=== PATIENT | female | born 1985 | race African-American/Black ===

== ENCOUNTER 2017-10-27 17:59 | Emergency (ER) | payer SELFPAY ==
[2017-10-27] MEDS ORDERED: Ondansetron HCl/PF 4 MG/2 ML Vial ONE (18:57)
[2017-10-27 19:12] LABS: #Lymphocytes 1.4 thou/uL (1.20-3.40); #Monocytes 0.3 thou/uL (0.11-0.59); #Neutrophils 7.5 thou/uL (1.40-6.50); %Basophils 0.5 % (0.0-1.0); %Eosinophils 0.2 % (0.0-10.0); %Lymphocytes 14.7 % (21.0-51.0); Hematocrit 26.2 % (36.0-47.0); Mean Platelet Volume 6.8 fL (7.4-10.4); Red Blood Cell (RBC) Count 4.14 mill/uL (4.20-5.40); White Blood Cell (WBC) Count 9.2 thou/uL (4.8-10.8)
[2017-10-27 19:15] LABS: Bilirubin Negative (Negative); Blood, Urine Large (Negative); Glucose, Urine (Dipstick) Negative (Negative); Ketone, Urine 40 mg/dL (Negative); Nitrite Negative (Negative); Protein, Urine (Dipstick) 30 mg/dL (Neg-Trace)
[2017-10-27 19:16] LABS: Bacteria/HPF 3+ HPF (None Seen); RBC/HPF 0-3 HPF (0-3)
[2017-10-27 19:17] LABS: PTT 26.1 SEC (22.9-36.1); Prothrombin Time 15.5 SEC (12.0-14.7)
[2017-10-27 19:23] LABS: ALT (SGPT) 11 U/L (8-55); AST (SGOT) 25 U/L (5-34); Acetaminophen Less than 6.0 mcg/mL (10.0-30.0); Alkaline Phosphatase 70 U/L (40-150); Anion Gap 12 mmol/L (10-20); BUN (Urea Nitrogen) 11 mg/dL (7.0-18.7); Bilirubin, Total 0.3 mg/dL (0.2-1.2); Calc. Creatinine Clearance 0 mL/min (70-130); Calcium 9.7 mg/dL (7.8-10.44); Carbon Dioxide 22 mmol/L (22-29); Chloride 106 mmol/L (98-107); Estimated GFR-MDRD Greater than 90; Globulin 4.2 g/dL (2.4-3.5); Protein, Total 8.3 g/dL (6.0-8.3)
[2017-10-27 19:29] LABS: Squamous Epithelial 21-50 HPF (0-3)
[2017-10-27 19:30] LABS: Anisocytosis MODERATE=16-30 cells (100X) (0-5/hpf); Elliptocytes SLIGHT = 2-5 cells (100X) (0-1/hpf); Hypochromia MODERATE=16-30 cells (100X) (0-5/hpf); Microcytosis MODERATE=15-30 cells (100X) (0-5/hpf); Ovalocytes SLIGHT = 2-5 cells (100X) (0-1/hpf); Poikilocytosis SLIGHT = 6-15 cells (100X) (0-5/hpf); Polychromasia SLIGHT = 2-3 cells (100X) (0-2/hpf); Schistocytes SLIGHT = 2-5 cells (100X) (0-1/hpf); Target Cells SLIGHT = 2-5 cells (100X) (0-1/hpf); Tear Drops SLIGHT = 2-5 cells (100X) (0-1/hpf)
[2017-10-27 19:30] LABS: Hyaline Casts/LPF 0-3 HYALINE CAST LPF (0-3 Hyaline); Yeast-All Forms None Seen HPF (None Seen)
== END 2017-10-27 20:09 | disposition home or self-care (01) ==
LOC: ERS 17:59
DX: R11.2 Nausea with vomiting, unspecified (principal); K03.81 Cracked tooth; K02.9 Dental caries, unspecified; Z87.891 Personal history of nicotine dependence
CPT/HCPCS: 80053; 80307; 81003; 81015; 81025; 85025; 85610; 85730; 87086; 96361; 96374; 99406; J2405

== ENCOUNTER 2017-11-28 21:38 | Emergency (ER) | payer SELFPAY | END 2017-11-28 22:32 | disposition home or self-care (01) | LOC: ERS 21:38 | DX: J10.1 Influenza due to other identified influenza virus with other respiratory manifestations (principal); Z87.891 Personal history of nicotine dependence; D64.9 Anemia, unspecified | CPT/HCPCS: 99283 ==

== ENCOUNTER 2018-07-19 15:47 | Emergency (ER) | payer OTHER, SELFPAY ==
[2018-07-19 17:01] LABS: Bilirubin Negative (Negative); Blood, Urine Negative (Negative); Clarity TURBID (Clear); Glucose, Urine (Dipstick) Negative (Negative); Leukocyte Trace (Negative); Nitrite Negative (Negative); Protein, Urine (Dipstick) Trace mg/dL (Neg-Trace); Specific Gravity, Urine 1.024 (1.002-1.036)
[2018-07-19 17:03] LABS: Bacteria/HPF Rare-Few HPF (None Seen); Pathc Cast-AUWi Flag 1.88 (0-2.49); Squamous Epithelial 21-50 HPF (0-3); WBC/HPF 0-3 HPF (0-3)
[2018-07-19 17:15] LABS: Crystals/HPF 3+ AMORPH PHOS HPF (Negative); Hyaline Casts/LPF 0-3 HYALINE CAST LPF (0-3 Hyaline); RBC/HPF 0-3 HPF (0-3)
--- NOTE | 2018-07-19 17:25 | ULT ---
PELVIC ULTRASOUND 07/19/18 HISTORY: Abdominal cramping in patient with positive . FINDINGS: There is a fluid collection seen within the endometrial canal which contains both a pole and a yolk sac. The cardiac doppler demonstrates heart tones with a heart rate of 178 beats per minute. [place]-rump length measures 3.18 cm, consistent with gestational age by ultrasound of 10 week s with RITA on 02/14/19. Gestational age by the last menstrual period is 10 weeks and 1 day. The ovaries are not visualized bilaterally. There is a hypoechoic cystic appearing structure at the l eft aspect of the uterine fundus which is difficult to separate from the peripheral aspect of the indira greer. This may potentially represent an ovarian cyst which abuts the uterus, but this is further to ev aluate on this examination. Color flow evaluation does not demonstrate flow in this region. Again, th e left ovary is not visualized and no tissue to suggest ovarian tissue surrounds the cystic structure in the left adnexa abutting the uterus. No free fluid is seen in the cul-de-sac. IMPRESSION: 1. Single intrauterine gestation with heart tones documented. Gestational age by measureme nt of the crown-rump length is 10 weeks with RITA on 02/14/19. 2. Hypoechoic cystic structure measuring 3.9 cm x 3.5 cm x 2.1 cm seen adjacent to the left uter us in the region of the uterine fundus. This cannot be from the uterine fundus. This may re present a left ovarian cyst and possibly corpus luteal cyst, but no definite ovarian tissue is seen i n this region. Followup evaluation is suggested. POS: KEVIN
[2018-07-19 18:15] LABS: BHCG - Serum POSITIVE (NEGATIVE); Pregs Control Background? CLEAR/WHITE (CLR/WHITE); Pregs Control Bar Appear? YES (CONTROL BAR)
[2018-07-19 18:18] LABS: #Basophils 0.1 thou/uL (0.0-0.2); #Eosinphils 0.1 thou/uL (0.0-0.7); #Lymphocytes 2.2 thou/uL (1.20-3.40); #Monocytes 0.5 thou/uL (0.11-0.59); #Neutrophils 4.1 thou/uL (1.40-6.50); %Basophils 1.5 % (0.0-1.0); %Eosinophils 1.5 % (0.0-10.0); %Lymphocytes 31.4 % (21.0-51.0); %Monocytes 6.5 % (0.0-10.0); %Neutrophils 59.2 % (42.0-75.0); Hemoglobin 8.1 g/dL (12.0-16.0); Mean Corpuscular HGB CONC 31.1 g/dL (32.0-36.0); Mean Corpuscular Hemoglobin 19.4 pg (27.0-31.0); Mean Corpuscular Volume 62.4 fL (78.0-98.0); Mean Platelet Volume 5.5 fL (7.4-10.4); Platelet Count 273 thou/uL (130-400); RBC Distribution Width 19.9 % (11.5-14.5); Red Blood Cell (RBC) Count 4.15 mill/uL (4.20-5.40)
[2018-07-19 18:19] LABS: ALT (SGPT) Less than 7 U/L (8-55); AST (SGOT) 11 U/L (5-34); Alkaline Phosphatase 57 U/L (40-150); Anion Gap 12 mmol/L (10-20); BUN (Urea Nitrogen) 7 mg/dL (7.0-18.7); Bilirubin, Total 0.3 mg/dL (0.2-1.2); Calc. Creatinine Clearance 0 mL/min (70-130); Calcium 9.6 mg/dL (7.8-10.44); Carbon Dioxide 22 mmol/L (22-29); Chloride 105 mmol/L (98-107); Estimated GFR-MDRD Greater than 90; Globulin 3.8 g/dL (2.4-3.5); Glucose 83 mg/dL (70-105); Potassium 3.5 mmol/L (3.5-5.1); Protein, Total 7.8 g/dL (6.0-8.3); Sodium 135 mmol/L (136-145)
[2018-07-19 18:34] LABS: Anisocytosis MODERATE=16-30 cells (100X) (0-5/hpf); Elliptocytes SLIGHT = 2-5 cells (100X) (0-1/hpf); Hypochromia MODERATE=16-30 cells (100X) (0-5/hpf); MDiff Complete? YES; Microcytosis SLIGHT = 6-15 cells (100X) (0-5/hpf); Ovalocytes SLIGHT = 2-5 cells (100X) (0-1/hpf); PLT Morphology Comment Appears Adequate; Poikilocytosis SLIGHT = 6-15 cells (100X) (0-5/hpf); Polychromasia SLIGHT = 2-3 cells (100X) (0-2/hpf); Reflex for Review?? YES; Schistocytes SLIGHT = 2-5 cells (100X) (0-1/hpf); Target Cells SLIGHT = 2-5 cells (100X) (0-1/hpf); Tear Drops SLIGHT = 2-5 cells (100X) (0-1/hpf)
[2018-07-21 19:03] LABS: Chlamydia by PCR Not Detected (NotDetected); GC by PCR Not Detected (NotDetected)
== END 2018-07-19 18:35 | disposition home or self-care (01) ==
LOC: ERS 15:47
DX: O20.0 Threatened abortion (principal); O99.011 Anemia complicating pregnancy, first trimester; D64.9 Anemia, unspecified; Z87.891 Personal history of nicotine dependence; Z3A.10 10 weeks gestation of pregnancy
CPT/HCPCS: 36415; 76856; 80053; 81003; 81015; 84702; 84703; 85025; 85060; 86900; 86901; 87480; 87491; 87510; 87591; 87660

== ENCOUNTER 2019-10-06 13:24 | Emergency (ER) | payer OTHER, SELFPAY ==
[2019-10-06] MEDS ORDERED: Ibuprofen 200 MG TAB ONE (16:11)
[2019-10-06] MEDS ORDERED: Bicillin LA 1.2 MILLION UNITS/2 ML SYRINGE ONE (16:11)
== END 2019-10-06 16:39 | disposition home or self-care (01) ==
LOC: ERS 13:24
DX: J02.9 Acute pharyngitis, unspecified (principal)
CPT/HCPCS: 87430; 87804; 96372; 99283; J0561

== ENCOUNTER 2019-12-29 19:32 | Emergency (ER) | payer SELFPAY | END 2019-12-29 20:39 | disposition left against medical advice (07) | LOC: ERS 19:32 | DX: Z53.21 Procedure and treatment not carried out due to patient leaving prior to being seen by health care provider (principal) ==

== ENCOUNTER 2019-12-29 21:37 | Emergency (ER) | payer SELFPAY | END 2019-12-29 23:45 | disposition home or self-care (01) | LOC: ERS 21:37 | DX: J06.9 Acute upper respiratory infection, unspecified (principal); F17.210 Nicotine dependence, cigarettes, uncomplicated | CPT/HCPCS: 87804; 99283 ==

== ENCOUNTER 2020-09-07 22:22 | Emergency (ER) | payer SELFPAY ==
[2020-09-07] MEDS ORDERED: Ibuprofen 800 MG TAB ONE (23:15)
== END 2020-09-07 23:21 | disposition home or self-care (01) ==
LOC: ERS 22:22
DX: K03.81 Cracked tooth (principal); K02.9 Dental caries, unspecified; F17.210 Nicotine dependence, cigarettes, uncomplicated
CPT/HCPCS: 99282

== ENCOUNTER 2020-09-24 19:39 | Emergency (ER) | payer SELFPAY | END 2020-09-24 20:24 | disposition home or self-care (01) | LOC: ERS 19:39 | DX: K04.7 Periapical abscess without sinus (principal); K02.9 Dental caries, unspecified | CPT/HCPCS: 99282 ==

== ENCOUNTER → 2020-10-20 | Emergency (ER) | payer SELFPAY ==
[2020-10-20 19:19] LABS: Hemoglobin 9.8 g/dL (12.0-16.0); Mean Corpuscular HGB CONC 31.5 g/dL (32.0-36.0); Mean Corpuscular Hemoglobin 23.6 pg (27.0-31.0); Mean Platelet Volume 11.7 fL (7.4-10.4); Platelet Count 196 thou/uL (130-400); RBC Distribution Width 18.2 % (11.5-14.5); Red Blood Cell (RBC) Count 4.15 mill/uL (4.20-5.40); White Blood Cell (WBC) Count 5.9 thou/uL (4.8-10.8)
[2020-10-20 19:20] LABS: #Basophils 0.1 thou/uL (0.0-0.2); #Eosinphils 0.1 thou/uL (0.0-0.7); #Lymphocytes 2.7 thou/uL (1.20-3.40); #Monocytes 0.4 thou/uL (0.11-0.59); #Neutrophils 2.7 thou/uL (1.40-6.50); %Eosinophils 2.3 % (0.0-10.0); %Lymphocytes 45.1 % (21.0-51.0); %Monocytes 5.9 % (0.0-10.0); %Neutrophils 45.8 % (42.0-75.0)
[2020-10-20 19:29] LABS: BHCG - Serum Negative (NEGATIVE); Pregs Control Background? CLEAR/WHITE (CLR/WHITE); Pregs Control Bar Appear? YES (CONTROL BAR)
[2020-10-20 19:34] LABS: ALT (SGPT) Less than 7 U/L (8-55); AST (SGOT) 13 U/L (5-34); Albumin 4.1 g/dL (3.5-5.0); Alkaline Phosphatase 80 U/L (40-110); Anion Gap 14 mmol/L (10-20); BUN (Urea Nitrogen) 9 mg/dL (7.0-18.7); Bilirubin, Total 0.3 mg/dL (0.2-1.2); Calc. Creatinine Clearance 0 mL/min (70-130); Calcium 9.5 mg/dL (7.8-10.44); Carbon Dioxide 24 mmol/L (22-29); Chloride 106 mmol/L (98-107); Estimated GFR-MDRD Greater than 90; Globulin 3.7 g/dL (2.4-3.5); Glucose 82 mg/dL (70-105); Potassium 3.8 mmol/L (3.5-5.1); Protein, Total 7.8 g/dL (6.0-8.3); Sodium 140 mmol/L (136-145)
[2020-10-20 19:42] LABS: Anisocytosis SLIGHT = 6-15 cells (100X) (0-5/hpf); Auer Rods SLIGHT; Hypochromia SLIGHT = 6-15 cells (100X) (0-5/hpf); Large Platelets SLIGHT; MDiff Complete? YES; Microcytosis SLIGHT = 6-15 cells (100X) (0-5/hpf); Ovalocytes SLIGHT = 2-5 cells (100X) (0-1/hpf); Polychromasia SLIGHT = 2-3 cells (100X) (0-2/hpf); Target Cells MODERATE= 6-15 cells (100X) (0-1/hpf)
== END ==
LOC: ERS 18:26
DX: Z53.21 Procedure and treatment not carried out due to patient leaving prior to being seen by health care provider (principal)
CPT/HCPCS: 36415; 80053; 84703; 85025

== ENCOUNTER 2021-09-12 19:52 | Emergency (ER) | payer SELFPAY ==
[2021-09-12 20:14] LABS: Bilirubin Negative (Negative); Blood, Urine Negative (Negative); Clarity Extra Turbid (Clear); Glucose, Urine (Dipstick) Normal (Negative); Ketone, Urine Negative (Negative); Leukocyte Negative Leu/uL (Negative); Nitrite Negative (Negative); Protein, Urine (Dipstick) 10 mg/dL (Neg-Trace); Specific Gravity, Urine 1.027 (1.002-1.036); Urobilinogen Normal mg/dL (Less than 2)
[2021-09-12 20:15] LABS: Pregnancy Test - Urine (BHCG) Negative (Negative); Pregu Control Background? CLEAR/WHITE (CLR/WHITE); Pregu Control Bar Appear? YES (CONTROL BAR); Specific Gravity 1.027 (1.002-1.036)
== END 2021-09-12 21:35 | disposition home or self-care (01) ==
LOC: ERS 19:52
DX: R10.9 Unspecified abdominal pain (principal)
CPT/HCPCS: 81003; 81025; 99284

== ENCOUNTER 2022-06-18 05:55 | Emergency (ER) | payer SELFPAY ==
[2022-06-18 07:34] LABS: BHCG - Serum POSITIVE (NEGATIVE); Pregs Control Background? CLEAR/WHITE (CLR/WHITE); Pregs Control Bar Appear? YES (CONTROL BAR)
[2022-06-18 07:38] LABS: Hemoglobin 9.2 g/dL (12.0-16.0); Mean Corpuscular HGB CONC 31.7 g/dL (32.0-36.0); Mean Corpuscular Volume 72.6 fL (78.0-98.0); Mean Platelet Volume 9.2 fL (7.4-10.4); Platelet Count 187 thou/uL (130-400); RBC Distribution Width 18.2 % (11.5-14.5); White Blood Cell (WBC) Count 7.8 thou/uL (4.8-10.8)
[2022-06-18 07:45] LABS: ALT (SGPT) 16 U/L (8-55); AST (SGOT) 19 U/L (5-34); Albumin 3.9 g/dL (3.5-5.0); Alkaline Phosphatase 65 U/L (40-110); Anion Gap 13 mmol/L (10-20); BUN (Urea Nitrogen) 10 mg/dL (7.0-18.7); Bilirubin, Total 0.3 mg/dL (0.2-1.2); Calc. Creatinine Clearance 0 mL/min (70-130); Calcium 9.4 mg/dL (7.8-10.44); Carbon Dioxide 22 mmol/L (22-29); Chloride 105 mmol/L (98-107); Estimated GFR 120; Globulin 3.5 g/dL (2.4-3.5); Glucose 90 mg/dL (70-105); Magnesium 1.8 mg/dL (1.6-2.6); Potassium 3.6 mmol/L (3.5-5.1); Protein, Total 7.4 g/dL (6.0-8.3); Sodium 136 mmol/L (136-145)
[2022-06-18 08:09] LABS: #Basophils 0.1 thou/uL (0.0-0.2); #Eosinphils 0.2 thou/uL (0.0-0.7); #Lymphocytes 2.5 thou/uL (1.20-3.40); #Monocytes 0.6 thou/uL (0.11-0.59); #Neutrophils 4.4 thou/uL (1.40-6.50); %Basophils 1.1 % (0.0-1.0); %Eosinophils 2.7 % (0.0-10.0); %Lymphocytes 32.3 % (21.0-51.0); %Monocytes 7.1 % (0.0-10.0); %Neutrophils 56.8 % (42.0-75.0); Microcytosis SLIGHT = 6-15 cells (100X) (0-5/hpf)
[2022-06-18 08:10] LABS: MDiff Complete? YES; Platelet Morphology Comment Appears Adequate
== END 2022-06-18 08:20 | disposition home or self-care (01) ==
LOC: ERS 05:55
DX: O99.411 Diseases of the circulatory system complicating pregnancy, first trimester (principal); R00.2 Palpitations; O99.011 Anemia complicating pregnancy, first trimester; D50.9 Iron deficiency anemia, unspecified; Z3A.01 Less than 8 weeks gestation of pregnancy
CPT/HCPCS: 36415; 71045; 80053; 83735; 83880; 84443; 84484; 84703; 85025; 85379; 93005; 94760

== ENCOUNTER 2022-06-25 05:03 | Emergency (ER) | payer MEDICAID, SELFPAY ==
[2022-06-25 05:57] LABS: Bacteria/HPF 1+ HPF (None Seen); Bilirubin Negative (Negative); Blood, Urine 3+ (Negative); Clarity Turbid (Clear); Glucose, Urine (Dipstick) Normal (Negative); Ketone, Urine Negative (Negative); Leukocyte 75 Leu/uL (Negative); Nitrite Negative (Negative); Protein, Urine (Dipstick) 30 mg/dL (Neg-Trace); RBC/HPF 21-50 HPF (0-3); Urobilinogen Normal mg/dL (Less than 2); pH, Urine 5.5 (5.0-9.0)
[2022-06-25 06:06] LABS: Hemoglobin 9.4 g/dL (12.0-16.0); Mean Corpuscular HGB CONC 30.9 g/dL (32.0-36.0); Mean Corpuscular Hemoglobin 21.9 pg (27.0-31.0); Mean Platelet Volume 11.3 fL (7.4-10.4); Platelet Count 223 thou/uL (130-400); RBC Distribution Width 18.5 % (11.5-14.5); Red Blood Cell (RBC) Count 4.27 mill/uL (4.20-5.40); White Blood Cell (WBC) Count 8.5 thou/uL (4.8-10.8)
[2022-06-25 06:07] LABS: #Eosinphils 0.2 thou/uL (0.0-0.7); #Lymphocytes 3.6 thou/uL (1.20-3.40); #Monocytes 0.4 thou/uL (0.11-0.59); #Neutrophils 4.2 thou/uL (1.40-6.50); %Basophils 0.5 % (0.0-1.0); %Eosinophils 2.4 % (0.0-10.0); %Monocytes 4.7 % (0.0-10.0); %Neutrophils 49.4 % (42.0-75.0)
== END 2022-06-25 07:30 | disposition home or self-care (01) ==
LOC: ERS 05:03
DX: O20.0 Threatened abortion (principal); O99.891 Other specified diseases and conditions complicating pregnancy; R82.71 Bacteriuria; Z3A.08 8 weeks gestation of pregnancy
CPT/HCPCS: 36415; 76856; 81003; 81015; 84702; 85025; 86900; 86901; 93976

== ENCOUNTER 2022-07-25 17:13 | Emergency (ER) | payer MEDICAID, OTHER ==
[2022-07-25 17:57] LABS: #Basophils 0.1 thou/uL (0.0-0.2); #Eosinphils 0.2 thou/uL (0.0-0.7); #Lymphocytes 2.3 thou/uL (1.20-3.40); #Monocytes 0.6 thou/uL (0.11-0.59); #Neutrophils 4.2 thou/uL (1.40-6.50); %Basophils 0.8 % (0.0-1.0); %Eosinophils 3.1 % (0.0-10.0); %Lymphocytes 30.5 % (21.0-51.0); %Monocytes 8.5 % (0.0-10.0); %Neutrophils 57.1 % (42.0-75.0); Hemoglobin 9.1 g/dL (12.0-16.0); Mean Corpuscular HGB CONC 32.3 g/dL (32.0-36.0); Mean Corpuscular Hemoglobin 22.6 pg (27.0-31.0); Mean Corpuscular Volume 69.9 fL (78.0-98.0); Mean Platelet Volume 10.7 fL (7.4-10.4); Platelet Count 197 thou/uL (130-400); RBC Distribution Width 18.6 % (11.5-14.5); Red Blood Cell (RBC) Count 4.04 mill/uL (4.20-5.40); White Blood Cell (WBC) Count 7.4 thou/uL (4.8-10.8)
[2022-07-25 18:07] LABS: Bacteria/HPF 2+ HPF (None Seen); Bilirubin Negative (Negative); Blood, Urine 2+ (Negative); Calcium Oxalate Crystals 1+ HPF (None Seen); Clarity Turbid (Clear); Glucose, Urine (Dipstick) Normal (Negative); Ketone, Urine Negative (Negative); Leukocyte 500 Leu/uL (Negative); Nitrite Negative (Negative); Protein, Urine (Dipstick) 70 mg/dL (Neg-Trace); RBC/HPF Greater than 50 HPF (0-3); Specific Gravity, Urine 1.024 (1.002-1.036); Urobilinogen Normal mg/dL (Less than 2); WBC/HPF Greater than 50 HPF (0-3); pH, Urine 6.5 (5.0-9.0)
[2022-07-25 18:14] LABS: ALT (SGPT) 10 U/L (8-55); AST (SGOT) 12 U/L (5-34); Albumin 3.8 g/dL (3.5-5.0); Alkaline Phosphatase 62 U/L (40-110); Anion Gap 13 mmol/L (10-20); BUN (Urea Nitrogen) 6 mg/dL (7.0-18.7); Bilirubin, Total 0.2 mg/dL (0.2-1.2); Calc. Creatinine Clearance 0 mL/min (70-130); Calcium 9.6 mg/dL (7.8-10.44); Carbon Dioxide 22 mmol/L (22-29); Chloride 104 mmol/L (98-107); Estimated GFR 117; Globulin 3.7 g/dL (2.4-3.5); Glucose 83 mg/dL (70-105); Potassium 3.6 mmol/L (3.5-5.1); Protein, Total 7.5 g/dL (6.0-8.3); Sodium 135 mmol/L (136-145)
== END 2022-07-25 19:14 | disposition home or self-care (01) ==
LOC: ERS 17:13
DX: N39.0 Urinary tract infection, site not specified (principal)
CPT/HCPCS: 36415; 80053; 81003; 81015; 85025; 87077; 87086; 87186; 99283

== ENCOUNTER 2022-08-24 20:34 | Emergency (ER) | payer OTHER ==
[2022-08-24 21:05] LABS: Bacteria/HPF 2+ HPF (None Seen); Bilirubin Negative (Negative); Blood, Urine Negative (Negative); Clarity Clear (Clear); Glucose, Urine (Dipstick) Normal (Negative); Ketone, Urine Negative (Negative); Leukocyte 75 Leu/uL (Negative); Mucous/LPF Rare LPF (<2+); Nitrite Negative (Negative); Protein, Urine (Dipstick) 10 mg/dL (Neg-Trace); RBC/HPF 0-3 HPF (0-3); Specific Gravity, Urine 1.028 (1.002-1.036); Urobilinogen Normal mg/dL (Less than 2)
[2022-08-25 00:29] LABS: Pregnancy Test - Urine (BHCG) POSITIVE (Negative); Pregu Control Background? CLEAR/WHITE (CLR/WHITE); Pregu Control Bar Appear? YES (CONTROL BAR)
[2022-08-25 00:30] LABS: Specific Gravity 1.028 (1.002-1.036)
[2022-08-25] MEDS ORDERED: Azithromycin 250 MG TAB ONE (00:51)
[2022-08-25] MEDS ORDERED: cefTRIAXone\\ROCEPHIN 1 GM VIAL ONE (00:51)
[2022-08-25] MEDS ORDERED: Sterile Water 10 ML ONE (00:52)
[2022-08-25] MEDS ORDERED: Fluconazole 100 MG TAB PO SCH (01:15)
[2022-08-25 13:45] LABS: Chlamydia by PCR *Indeterminate (NotDetected); GC by PCR *Indeterminate (NotDetected)
== END 2022-08-25 01:44 | disposition home or self-care (01) ==
LOC: ERS 20:34
DX: O23.592 Infection of other part of genital tract in pregnancy, second trimester (principal); Z3A.16 16 weeks gestation of pregnancy
CPT/HCPCS: 81003; 81015; 81025; 87480; 87491; 87510; 87591; 87660; 96372; 99283; J0696

== ENCOUNTER 2024-05-20 16:45 | Emergency (ER) | payer SELFPAY ==
[2024-05-20 17:33] LABS: #Basophils 0.06 10x3/uL (0.0-0.2); %Basophils 1.5 % (0.0-1.0); %Eosinophils 2.2 % (0.0-10.0); %Lymphocytes 47.7 % (21.0-51.0); %Monocytes 6.8 % (0.0-10.0); %Neutrophils 41.6 % (42.0-75.0); Hematocrit 26.3 % (36.0-47.0); Hemoglobin 7.4 g/dL (12.0-16.0); Mean Corpuscular HGB CONC 28.1 g/dL (32.0-36.0); Mean Corpuscular Volume 63.8 fL (78.0-98.0); Platelet Count 203 10x3/uL (130-400); Red Blood Cell (RBC) Count 4.12 mill/uL (4.20-5.40)
[2024-05-20 17:52] LABS: ALT (SGPT) 7 U/L (8-55); AST (SGOT) 14 U/L (5-34); Albumin 3.7 g/dL (3.5-5.0); Alkaline Phosphatase 85 U/L (40-110); Anion Gap 12 mmol/L (10-20); BUN (Urea Nitrogen) 8 mg/dL (7.0-18.7); Bilirubin, Total 0.3 mg/dL (0.2-1.2); Calc. Creatinine Clearance 0 mL/min (70-130); Calcium 9.4 mg/dL (7.8-10.44); Carbon Dioxide 22 mmol/L (22-29); Chloride 109 mmol/L (98-107); Estimated GFR 107; Glucose 86 mg/dL (70-105); Protein, Total 7.7 g/dL (6.0-8.3); Sodium 139 mmol/L (136-145)
[2024-05-20 18:02] LABS: Elliptocytes SLIGHT = 2-5 cells HPF (0-1); Hypochromia MODERATE=16-30 cells HPF (0-5); Microcytosis MARKED = >30 cells HPF (0-5); Ovalocytes SLIGHT = 2-5 cells HPF (0-1); Platelet Adequacy Comment Platelets Normal; Polychromasia SLIGHT = 2-3 cells HPF (0-2); Schistocytes SLIGHT = 2-5 cells HPF (0-1)
[2024-05-20 19:27] LABS: Pregnancy Test - Urine (BHCG) Negative (Negative)
[2024-05-20 19:28] LABS: Pregu Control Background? CLEAR/WHITE (CLR/WHITE); Pregu Control Bar Appear? YES (CONTROL BAR); Specific Gravity 1.023 (1.002-1.036)
[2024-05-20 19:31] LABS: Bacteria/HPF None Seen HPF (None Seen); Bilirubin Negative (Negative); Blood, Urine Negative (Negative); CAUTI Indications for Culture Pelvic or flank pain; Clarity Clear (Clear); Glucose, Urine (Dipstick) Normal (Negative); Ketone, Urine Negative (Negative); Leukocyte Negative Leu/uL (Negative); Nitrite Negative (Negative); Protein, Urine (Dipstick) 10 mg/dL (Neg-Trace); RBC/HPF 0-3 HPF (0-3); Specific Gravity, Urine 1.025 (1.002-1.036); Urobilinogen Normal mg/dL (Less than 2); WBC/HPF 0-3 HPF (0-3); pH, Urine 6.5 (5.0-9.0)
[2024-05-20] MEDS ORDERED: Ibuprofen 800 MG TAB ONE (20:19)
[2024-05-20] MEDS ORDERED: Acetaminophen 325 MG TAB ONE (20:19)
[2024-05-20 20:20] LABS: Urine Culture Reflex No No
[2024-05-21 05:58] LABS: Chlam.trachomatis by PCR,Urine Not Detected (NotDetected); GC N.gonorrhoeae PCR,UrineVOID Not Detected (NotDetected)
== END 2024-05-21 00:15 | disposition home or self-care (01) ==
LOC: ERS 16:45
DX: D25.9 Leiomyoma of uterus, unspecified (principal); D64.9 Anemia, unspecified
CPT/HCPCS: 36415; 72170; 76856; 80053; 81001; 81025; 84702; 85025; 87491; 87591; J1750; J7050

== ENCOUNTER 2025-08-08 01:02 | Emergency (ER) | payer SELFPAY ==
[2025-08-08] MEDS ORDERED: Acetaminophen 500 MG TAB ONE (01:28)
[2025-08-08 01:44] LABS: Bacteria/HPF None Seen HPF (None Seen); CAUTI Indications for Culture Pelvic or flank pain; Glucose, Urine (Dipstick) Normal (Negative); Leukocyte 75 Leu/uL (Negative); Protein, Urine (Dipstick) Negative (Neg-Trace); RBC/HPF 0-3 HPF (0-3); Specific Gravity, Urine 1.018 (1.002-1.036)
[2025-08-08 01:45] LABS: #Basophils 0.06 10x3/uL (0.0-0.2); #Eosinophils Less than 0.03 10x3/uL (0.0-0.7); #Monocytes 0.52 10x3/uL (0.11-0.59); #Neutrophils 15.65 10x3/uL (1.40-6.50); %Basophils 0.3 % (0.0-1.0); %Eosinophils 0.1 % (0.0-10.0); %Lymphocytes 5.3 % (21.0-51.0); %Monocytes 3.0 % (0.0-10.0); %Neutrophils 90.7 % (42.0-75.0); Hematocrit 22.8 % (36.0-47.0); Hemoglobin 6.1 g/dL (12.0-16.0); Mean Corpuscular Hemoglobin 16.2 pg (27.0-31.0); Mean Corpuscular Volume 60.6 fL (78.0-98.0); Platelet Count 314 10x3/uL (130-400); Red Blood Cell (RBC) Count 3.76 mill/uL (4.20-5.40); White Blood Cell (WBC) Count 17.26 10x3/uL (4.8-10.8)
[2025-08-08 01:46] LABS: Pregnancy Test - Urine (BHCG) POSITIVE (Negative); Pregu Control Background? CLEAR/WHITE (CLR/WHITE); Pregu Control Bar Appear? YES (CONTROL BAR)
[2025-08-08 01:47] LABS: Urine Culture Reflex Yes Yes
[2025-08-08 02:09] LABS: ALT (SGPT) 10 U/L (Less than 34); AST (SGOT) 32 U/L (11-34); Albumin 3.5 g/dL (3.1-4.5); Alkaline Phosphatase 85 U/L (40-110); Anion Gap 13 mmol/L (10-20); BUN (Urea Nitrogen) 9 mg/dL (7.0-18.7); Bilirubin, Total 0.4 mg/dL (0.3-1.2); Calc. Creatinine Clearance 0 mL/min (70-130); Calcium 9.3 mg/dL (7.8-10.44); Carbon Dioxide 22 mmol/L (22-29); Chloride 106 mmol/L (98-107); Globulin 4.2 g/dL (2.4-3.5); Glucose 100 mg/dL (70-105); Potassium 3.2 mmol/L (3.5-5.1); Sodium 138 mmol/L (136-145)
[2025-08-08] MEDS ORDERED: Ketorolac Tromethamine 30 MG (1 mL) VIAL ONE (03:46)
== END 2025-08-08 06:02 ==
LOC: ERS 01:02
DX: A41.9 Sepsis, unspecified organism (principal); O03.4 Incomplete spontaneous abortion without complication
CPT/HCPCS: 36415; 36430; 76856; 80053; 81001; 81025; 83605; 83880; 84484; 84702; 85025; 86850; 86900; 86901; 87040; 87086; 87428; 93005; 93976; 96365; 96366; 96367; 96375; J1885; J2543; J3010; J3373; J7030; P9016